=== PATIENT | male | born 1960 | race Caucasian/White ===

== ENCOUNTER → 2018-12-22 | Outpatient (CLI) | payer OTHER ==
[~2018-12-22] VITALS: Ht 172.7 cm; Wt 108.9 kg
[~2018-12-22] MED LIST: REGADENOSON 0.4 MG/5 ML DISP.SYRIN. IV ONE
--- NOTE | 2018-12-22 11:00 | RAD ---
MR#: [id number] Date of Study: 12/22/2018 Ordering Physician: WERNER BUSCH, Referring Physician: MART KILGORE Tech: RT Hunter (R) (N) APPROVED REPORT Test Type: Pharmacological Stress Nurse/Tech: Yumiko Wong R.N. Test Indications: syncope, abn. EKG Cardiac History: Family history, Hypertension, smoker Medications: See Electronic Medical Record Medical History: See Electronic Medical Record Resting ECG: NSR with freq. PVC's Resting Heart Rate: 62 bpm Resting Blood Pressure: 137/81mmHg Pretest Chest Pain: No chest pain Nurse/Tech Notes S1S2, lungs sound clear Consent: The procedure was explained to the patient in lay terms. Informed consent was witnessed. Fazal eout was entered into [facility]. History and Stress Test performed by [facility] Details Pharmacologic stress testing was performed using 0.4mg per 5ml of regadenoson given intravenously ove r 7-10 seconds. Stress Symptoms No chest pain or symptoms. POST EXERCISE Reason for Termination: Infusion complete Target HR: 136 Max HR: 98 bpm Max Blood Pressure: 138/66mmHg Blood Pressure response to exercise: Normal blood pressure response during stress. Chest Pain: No. Arrhythmia: Yes. cont. to have freq. PVC's ST Change: No. INTERPRETATION Stress EKG Conclusion: Baseline EKG showed sinus rhythm. Non-diagnostic changes at peak stress. No arrhythmias. Imaging Protocol IMAGE PROTOCOL: Stress Tc-99m/rest Tc-99m 2 days Rest: Stress: Viability: Radiopharm.Tc99m Sestamibi [id number] Duration 15min. Img Date 12/22/2018 Inj-Img [id number]. Stress Admin Site: IV - Right HandAdministrator: LUIS Resendiz STRESS DATA End Diast. Vol.118.0mlAv. Heart Rate65.0bpm LVEDV index BSA54.0mlCardiac Output2.2L/min End Syst. Vol.43.0mlCO Index BSA4.9L/min LVESV index BSA19.0mlMyocardial Uohj355.0g Eject. Hzwxodgv36.0% Stress Scores Regional WT1.00Summed WT6.00 Regional WM0.00Summed WM0.00 LV Perfusion Stress scintigraphic images did not show any significant perfusion defects. Wall Motion Normal left ventricle systolic function with ejection fraction calculated at 64%. LV Perf. Quant 17 Seg. SSS0.00 Stress Defect Extent (% LAD)0.00Rest Defect Extent (% LAD)Rev. Defect Extent (% LAD)0.00 Stress Defect Extent (% LCX) 0.00Rest Defect Extent (% LCX)Rev. Defect Extent (% LCX)0.00 Stress Defect Extent (% RCA)0.00Rest Defect Extent (% RCA)Rev. Defect Extent (% RCA)0.00 Stress Defect Extent (% TRAE)0.00Rest Defect Extent (% TRAE)Rev. Defect Extent (% TRAE)0.00 Conclusion 1. Regadenoson cardioisotope stress test did not show any evidence of ischemia or infarct. 2. Normal left ventricular systolic function with ejection fraction calculated at 64%. 3. Low risk for cardiac events. Signed by : Werner Busch, Electronically Approved : 12/22/2018 10:59:32
--- NOTE | 2018-12-25 11:19 | CARD ---
MR#: [id number] Date of Study: 12/25/2018 Ordering Physician: WERNER CHAVEZ, Referring Physician: WERNER CHAVEZ Tech: Leni Villatoro WM APPROVED REPORT EXAM: Two-dimensional and M-mode echocardiogram with Doppler and color Doppler. Other Information Quality : Technically LimitedHR: 60bpm Rhythm : NSRTechnically limited study due to body habitus. INDICATION Syncope 2D DIMENSIONS RVDd2.9 (2.9-3.5cm)Left Atrium(2D)4.1 (1.6-4.0cm) IVSd1.0 (0.7-1.1cm)Aortic Root(2D)3.4 (2.0-3.7cm) LVDd4.7 (3.9-5.9cm)LVOT Diameter2.3 (1.8-2.4cm) PWd1.1 (0.7-1.1cm)LVDs3.1 (2.5-4.0cm) FS (%) 34.7 %SV66.0 ml LVEF(%)63.8 (>50%) M-Mode DIMENSIONS Left Atrium(MM)4.36 (2.5-4.0cm)Aortic Root3.61 (2.2-3.7cm) Aortic Valve AoV Peak Ede.124.9cm/sAoV VTI25.9cm AO Peak GR.6.2mmHgLVOT Peak Ede.88.7cm/s AO Mean GR.3mmHgAVA (VMAX)3.06cm2 JAREN (VTI)3.00cm2 Mitral Valve MV E Rrdrvjme93.8cm/sMV DECEL [id number] MV A Ndhuebft61.0cm/sE/A Ratio1.8 MV A [id number] Pulmonary Valve PV Peak Gnaewdsg22.3cm/s LEFT VENTRICLE The left ventricle is normal size. There is normal left ventricular wall thickness. The left ventricu lar systolic function is normal. The Ejection Fraction is 60-65%. There is normal LV segmental wall m otion. Transmitral Doppler flow pattern is Grade II-pseudonormal filling dynamics. RIGHT VENTRICLE The right ventricle is normal size. There is normal right ventricular wall thickness. The right ventr icular systolic function is normal. ATRIA The left atrium is mildly dilated. The right atrium size is normal. The interatrial septum is intact with no evidence for an atrial septal defect or patent foramen ovale as noted on 2-D or Doppler imagi ng. AORTIC VALVE The aortic valve is normal in structure and function. The aortic valve is trileaflet. Doppler and Col or Flow revealed no significant aortic regurgitation. There is no significant aortic valvular stenosi s. MITRAL VALVE The mitral valve is normal in structure and function. There is no evidence of mitral valve prolapse. There is no mitral valve stenosis. Doppler and Color-flow revealed trace mitral regurgitation. TRICUSPID VALVE The tricuspid valve is normal in structure and function. Doppler and Color Flow revealed no tricuspid valve regurgitation noted. There is no tricuspid valve prolapse or vegetation. There is no tricuspid valve stenosis. PULMONIC VALVE Pulmonic valve not well visualized. GREAT VESSELS The aortic root is normal in size. The ascending aorta is normal in size. The IVC is normal in size a nd collapses >50% with inspiration. PERICARDIAL EFFUSION There is no evidence of significant pericardial effusion. Critical Notification Critical Value: No <Conclusion> The left ventricular systolic function is normal. The Ejection Fraction is 60-65%. There is normal LV segmental wall motion. Transmitral Doppler flow pattern is Grade II-pseudonormal filling dynamics. The left atrium is mildly dilated. Doppler and Color-flow revealed trace mitral regurgitation. There is no evidence of significant pericardial effusion. Signed by : Werner Chavez, Electronically Approved : 12/25/2018 11:18:31
== END | disposition home or self-care (01) ==
LOC: NM 08:02
PROVIDERS: ATTEND Internal Medicine Cardiovascular Disease
DX: I49.3 Ventricular premature depolarization (principal); I49.9 Cardiac arrhythmia, unspecified; R94.31 Abnormal electrocardiogram [ECG] [EKG]; R55 Syncope and collapse; I10 Essential (primary) hypertension; Z87.891 Personal history of nicotine dependence; Z82.49 Family history of ischemic heart disease and other diseases of the circulatory system
CPT/HCPCS: 78452; 93017; 96374; A9500; J2785; 93306